=== PATIENT | male | born 1970 | race Caucasian/White ===

== ENCOUNTER 2017-07-28 00:01 | Outpatient (RCR) | payer MEDICARE, MEDICAID, SELFPAY ==
[2013-08-01 10:46] VITALS: BP 124/91
[~2017-07-28 00:01] MED LIST: CITA40TA14 PO; CLON1TAB4 PO; DIVA500T35 PO; GLIM4 PO; GLIP10TA9 PO; HALO5 PO; INSU100C4 SQ; INSU100V SQ; LISI-661 PO; LISI20TA PO; METF1000 PO; METF10002 PO; METF850T2 PO; OMEP10SU2 PO; OMEP20 PO; PANT40TA25 PO; PIOG15TA6 PO; PRAV20TA PO; PRAV40TA4 PO; QUET400T PO; RISP2TAB4 PO; RISP3TAB44 PO; RISP3TAB6 PO; RISPC25 IM; SITA100 PO; TRAZ-144 PO; ZIPR80CA2 PO
== END 2017-08-26 | disposition home or self-care (01) ==
LOC: IOPBV 00:01
PROVIDERS: ATTEND Psychiatry & Neurology Psychiatry
DX: F20.0 Paranoid schizophrenia (principal); I10 Essential (primary) hypertension; K92.9 Disease of digestive system, unspecified; E11.9 Type 2 diabetes mellitus without complications; F17.210 Nicotine dependence, cigarettes, uncomplicated; F14.21 Cocaine dependence, in remission; F12.21 Cannabis dependence, in remission; Z88.0 Allergy status to penicillin
CPT/HCPCS: 90853

== ENCOUNTER → 2018-02-16 | Outpatient (CLI) | payer MEDICARE, MEDICAID ==
[~2018-02-16] MED LIST changes: -CITA40TA14 PO; -CLON1TAB4 PO; -GLIM4 PO; -GLIP10TA9 PO; -INSU100V SQ; -LISI20TA PO; -METF10002 PO; -METF850T2 PO; -OMEP10SU2 PO; -OMEP20 PO; -PIOG15TA6 PO; -PRAV40TA4 PO; -RISP2TAB4 PO; -RISP3TAB44 PO; -RISP3TAB6 PO; -RISPC25 IM; -SITA100 PO; -TRAZ-144 PO; -ZIPR80CA2 PO
== END | disposition home or self-care (01) ==
LOC: LABMN 10:00
PROVIDERS: ATTEND Psychiatry & Neurology Psychiatry
DX: F20.9 Schizophrenia, unspecified (principal)

== ENCOUNTER → 2021-01-21 | Outpatient (CLI) | payer MEDICARE, MEDICAID ==
[~2021-01-21] MED LIST changes: +DIVA-112 PO; -DIVA500T35 PO; -HALO5 PO; +HALO5TAB2 PO; +PANT-31 PO; -PANT40TA25 PO
[2021-01-21 16:50] LABS: HEMOGLOBIN A1C 9.8 % (3.8-5.6)
== END | disposition home or self-care (01) ==
LOC: LABPV 12:40
PROVIDERS: ATTEND Psychiatry & Neurology Psychiatry
DX: F20.9 Schizophrenia, unspecified (principal)
CPT/HCPCS: 80173; 82542; 82947; 83036

== ENCOUNTER → 2021-09-09 | Outpatient (CLI) | payer MEDICARE, MEDICAID | END | disposition home or self-care (01) | LOC: LABMN 12:55 | PROVIDERS: ATTEND Psychiatry & Neurology Psychiatry | DX: F20.9 Schizophrenia, unspecified (principal) | CPT/HCPCS: 80164 ==

== ENCOUNTER → 2022-04-07 | Outpatient (CLI) | payer MEDICARE, MEDICAID | END | disposition home or self-care (01) | LOC: LABPV 12:25 | PROVIDERS: ATTEND Psychiatry & Neurology Psychiatry | DX: F20.9 Schizophrenia, unspecified (principal) | CPT/HCPCS: 80164 ==

== ENCOUNTER → 2022-10-06 | Outpatient (CLI) | payer MEDICARE, MEDICAID | END | disposition home or self-care (01) | LOC: LABMN 18:25 | PROVIDERS: ATTEND Psychiatry & Neurology Psychiatry | DX: F20.1 Disorganized schizophrenia (principal) | CPT/HCPCS: 80164 ==

== ENCOUNTER → 2023-01-26 | Outpatient (CLI) | payer MEDICARE, MEDICAID ==
[2023-01-26 19:03] LABS: HEMOGLOBIN A1C 9.6 % (3.8-5.6)
== END | disposition home or self-care (01) ==
LOC: LABMN 16:50
PROVIDERS: ATTEND Psychiatry & Neurology Psychiatry
DX: F20.9 Schizophrenia, unspecified (principal); Z79.899 Other long term (current) drug therapy
CPT/HCPCS: 80061; 82947; 83036

== ENCOUNTER → 2023-05-18 | Outpatient (CLI) | payer MEDICARE, MEDICAID | END | disposition home or self-care (01) | LOC: LABMN 14:13 | PROVIDERS: ATTEND Psychiatry & Neurology Psychiatry | DX: F20.9 Schizophrenia, unspecified (principal) | CPT/HCPCS: 80164 ==

== ENCOUNTER → 2023-07-27 | Outpatient (CLI) | payer MEDICARE, MEDICAID | END | disposition home or self-care (01) | LOC: LABMN 13:20 | PROVIDERS: ATTEND Psychiatry & Neurology Psychiatry | DX: F25.0 Schizoaffective disorder, bipolar type (principal) | CPT/HCPCS: 80164 ==

== ENCOUNTER → 2024-03-07 | Outpatient (CLI) | payer MEDICARE, MEDICAID ==
[2024-03-07 16:54] LABS: HEMOGLOBIN A1C 7.7 % (3.8-5.6)
== END | disposition home or self-care (01) ==
LOC: LABMN 11:35
PROVIDERS: ATTEND Psychiatry & Neurology Psychiatry
DX: F20.9 Schizophrenia, unspecified (principal); Z79.899 Other long term (current) drug therapy
CPT/HCPCS: 80061; 82947; 83036

== ENCOUNTER → 2024-06-06 | Outpatient (CLI) | payer MEDICARE, MEDICAID | END | disposition home or self-care (01) | LOC: LABMN 13:15 | PROVIDERS: ATTEND Psychiatry & Neurology Psychiatry | DX: F20.9 Schizophrenia, unspecified (principal) | CPT/HCPCS: 80164 ==